=== PATIENT | male | born 1965 | race Caucasian/White ===

== ENCOUNTER 2018-06-08 04:44 | Emergency (ER) | payer BC ==
[~2018-06-08] VITALS: Ht 172.7 cm; Wt 97.3 kg
[2018-06-08 04:50] VITALS: TEMP 97
[2018-06-08] MEDS ORDERED: MOBIC15 MG PO (04:55)
[2018-06-08 05:25] LABS: COLLECTION METHOD CLEAN CATCH
[2018-06-08 05:28] LABS: BASO # 0.1 (0.0-0.2); BASO % 0.8 % (0.0-2.0); EOS # 0.3 (0.0-0.7); EOS % 3.3 % (0-4.0); GRAN # 4.2 (1.4-6.5); GRAN % 53.2 % (42.2-75.2); HEMATOCRIT 49.4 % (42.0-52.0); LYMPH # 2.4 (1.2-3.4); LYMPH % 30.7 % (20.0-51.0); MEAN CELL VOLUME 88 fl (80.0-100.0); MEAN CORPUSCULAR HEMOGLOBIN 29 pg (27.0-31.0); MEAN CORPUSCULAR HGB CONC 32 g/dl (33.0-37.0); MEAN PLATELET VOLUME 10.8 fl (7.4-10.4); MONO # 0.9 (0.1-0.6); MONO % 11.7 % (1.7-9.3); PLATELET COUNT 242 K/mm3 (130-400); RED BLOOD COUNT 5.61 M/mm3 (4.20-5.60); REDCELL DISTRIBUTION WIDTH-CV 12.7 % (11.5-14.5)
[2018-06-08 05:32] LABS: MUCOUS Present /lpf; PH 5 (5-8); SQUAMOUS EPITHELIAL None Seen /hpf; URINE APPEARANCE Clear; URINE BACTERIA None Seen /hpf; URINE BILIRUBIN Negative (NEGATIVE); URINE BLOOD 2+ (NEGATIVE); URINE COLOR Yellow; URINE GLUCOSE Negative (NEGATIVE); URINE KETONE Negative (NEGATIVE); URINE LEUKOCYTE ESTERASE Negative (NEGATIVE); URINE NITRATE Negative (NEGATIVE); URINE PROTEIN(semi-quant) Negative (NEGATIVE); URINE RBC 20-50 /hpf; URINE UROBILINOGEN Negative (NEGATIVE)
[2018-06-08 05:41] LABS: ALANINE AMINOTRANSFERASE 24 U/L (21-72); ALBUMIN 4.4 gm/dL (3.5-5.0); ALKALINE PHOSPHATASE 57 U/L (50-136); ANION GAP 9 mmol/L (7-16); AST,SGOT 22 U/L (15-37); BILIRUBIN,TOTAL 0.5 mg/dL (0.0-1.0); BLOOD UREA NITROGEN 24 mg/dL (9-20); C-REACTIVE PROTEIN < 0.5 mg/dL (0.0-0.9); CALCIUM 9.5 mg/dL (8.4-10.2); CARBON DIOXIDE 28 mmol/L (22-30); CHLORIDE 104 mmol/L (98-107); CREATININE, serum 1.14 (0.66-1.25); GLUCOSE 104 mg/dL (74-106); LIPASE 159 U/L (23-300); POTASSIUM 4.2 mmol/L (3.4-5.0); SODIUM 140 mmol/L (137-145); TOTAL PROTEIN 7.5 gm/dL (6.4-8.2)
[2018-06-08] MEDS ORDERED: PERCOCET 325 MG1 TA2 PO (06:59)
[2018-06-08] MEDS ORDERED: ZOFRAN ODT4 MG PO (06:59)
[2018-06-08 07:13] VITALS: BP 131/74; PULSE 78
== END 2018-06-08 07:14 | disposition home or self-care (01) ==
LOC: COL.ER 04:44
PROVIDERS: Emergency Medicine
DX: N20.1 Calculus of ureter (principal); N23 Unspecified renal colic
CPT/HCPCS: J1170; J1885; J2405; J7030; Q9967

== ENCOUNTER 2023-12-04 23:20 | Emergency (ER) | payer OTHER ==
[~2023-12-04] VITALS: Ht 172.7 cm; Wt 109.1 kg
[~2023-12-04 23:20] MED LIST: LIBRIUM 25M25 MG/CAP PO; MOBIC15 MG PO; PERCOCET 325 MG1 TA2 PO; ZOFRAN ODT4 MG PO
[2023-12-04 23:25] VITALS: TEMP 98
[2023-12-04 23:45] LABS: BASO # 0.1 K/mm3 (0.0-0.2); BASO % 0.7 % (0.0-2.0); EOS # 0.2 K/mm3 (0.0-0.7); GRAN # 5.7 K/mm3 (1.4-6.5); GRAN % 57.6 % (42.2-75.2); HEMATOCRIT 44.7 % (42.0-52.0); HEMOGLOBIN 15.3 g/dl (13.5-18.0); LYMPH # 2.7 K/mm3 (1.2-3.4); LYMPH % 26.7 % (20.0-51.0); MEAN CELL VOLUME 89 fl (80.0-100.0); MEAN CORPUSCULAR HEMOGLOBIN 30 pg (27-31); MEAN CORPUSCULAR HGB CONC 34 g/dl (33.0-37.0); MEAN PLATELET VOLUME 10.8 fl (7.4-10.4); MONO # 1.3 K/mm3 (0.1-0.6); MONO % 12.7 % (1.7-9.3); PLATELET COUNT 311 K/mm3 (130-400); RED BLOOD COUNT 5.05 M/mm3 (4.20-5.60)
[2023-12-04] MEDS ORDERED: NS 1,000 ML IV ONE (23:45)
[2023-12-04] MEDS ORDERED: hydrALAZINE 20 MG/ML 1 ML VIAL IV ONE (23:45)
[2023-12-04 23:58] LABS: ALANINE AMINOTRANSFERASE 28 U/L (0-55); ALBUMIN 3.8 g/dL (3.5-5.0); ALKALINE PHOSPHATASE 60 U/L (40-150); ANION GAP 14 mmol/L (7-16); AST,SGOT 19 U/L (5-34); BILIRUBIN,TOTAL 0.3 mg/dL (0.2-1.2); BLOOD UREA NITROGEN 18 mg/dL (8-26); CALCIUM 9.7 mg/dL (8.4-10.2); CHLORIDE 102 mEq/L (98-107); CREATININE, serum 1.09 mg/dL (0.72-1.25); GLUCOSE 140 mg/dL (70-99); SODIUM 140 mEq/L (136-145)
[2023-12-05 00:01] LABS: ALCOHOL(ethanol),MEDICAL < 10 mg/dL (0-10); POTASSIUM 2.9 mEq/L (3.5-4.5)
[2023-12-05] MEDS ORDERED: hydrALAZINE 20 MG/ML 1 ML VIAL IV ONE (00:15)
[2023-12-05] MEDS ORDERED: LORazepam 2 MG/ML 1 ML VIAL IV ONE (00:30)
[2023-12-05] MEDS ORDERED: K-TAB20 PO (02:42)
[2023-12-05] MEDS ORDERED: PRINIVIL10 MG PO (02:42)
[2023-12-05] MEDS ORDERED: AMOXICILLIN 8751 TAB PO (02:54)
[2023-12-05 03:57] VITALS: BP 160/88; PULSE 92
== END 2023-12-05 03:58 | disposition home or self-care (01) ==
LOC: COL.ER 23:20
PROVIDERS: Nurse Practitioner
DX: I16.1 Hypertensive emergency (principal); I10 Essential (primary) hypertension; F41.9 Anxiety disorder, unspecified; E87.6 Hypokalemia; R00.0 Tachycardia, unspecified; Z79.899 Other long term (current) drug therapy
CPT/HCPCS: J0360; J2060; J7030